=== PATIENT | female | born 1980 | race African-American/Black ===

== ENCOUNTER 2021-12-06 04:56 | Day surgery (SDC) | payer OTHER ==
[2021-12-03 10:01] VITALS: BMI 30.5
[2021-12-06] MEDS ORDERED: GABAPENTIN 300 MG CAPSULE ONE (06:50)
[2021-12-06] MEDS ORDERED: PHENAZOPYRIDINE HCL 100 MG TABLET (FP) ONE (06:51)
[2021-12-06] MEDS ORDERED: ceFAZolin SODIUM 1 GM VIAL ONE ×2 (06:51→18:13)
[2021-12-06] MEDS ORDERED: ACETAMINOPHEN INJECTION 100 ML IVPB ONE (06:51)
[2021-12-06] MEDS ORDERED: BUPIVACAINE LIPOSOME/PF (EXPAREL) 266 MG/20 ML VIAL ONE (07:04)
[2021-12-06] MEDS ORDERED: BUPIVACAINE HCL/PF 0.25% (2.5MG/ML) 10 ML VIAL ONE (07:04)
[2021-12-06] MEDS ORDERED: PROPOFOL 20 ML ONE ×4 (07:08→07:09)
[2021-12-06] MEDS ORDERED: MIDAZOLAM HCL 2 MG/2 ML SINGLE DOSE VIAL ONE ×3 (07:09)
[2021-12-06] MEDS ORDERED: ROCURONIUM BROMIDE 50 MG/5 ML SYRINGE ONE ×2 (07:10→08:23)
[2021-12-06] MEDS ORDERED: GABAPENTIN 300 MG CAPSULE PO ONE (07:30)
[2021-12-06] MEDS ORDERED: TRANEXAMIC ACID 1000 MG/10 ML VIAL IVPUSH ONE (07:30)
[2021-12-06] MEDS ORDERED: PHENAZOPYRIDINE HCL 100 MG TABLET (FP) PO ONE (07:30)
[2021-12-06] MEDS ORDERED: CEFAZOLIN 2 GM in DEXTROSE 5%-WATER - 100 ML IVPB ONE (07:30)
[2021-12-06] MEDS ORDERED: ACETAMINOPHEN 1000 MG/100 ML BAG IVPB ONE (07:30)
[2021-12-06] MEDS ORDERED: ceFAZolin SODIUM 1 GM VIAL IVPB ONE (08:20)
[2021-12-06] MEDS ORDERED: DEXAMETHASONE SOD PHOSPHATE 4 MG/1 ML VIAL ONE (08:23)
[2021-12-06] MEDS ORDERED: HYDROmorphone HCl 2 MG/ML VIAL ONE (08:36)
[2021-12-06] MEDS ORDERED: NEOSTIGMINE METHYLSULFATE 0.5 MG/ML - 10 ML MDV ONE (09:09)
[2021-12-06] MEDS ORDERED: NALOXONE HCL 0.4 MG/ML VIAL ONE (10:15)
[2021-12-06] MEDS ORDERED: ONDANSETRON 4 MG/2 ML VIAL IVPUSH PRN ×2 (10:24→10:33)
[2021-12-06] MEDS ORDERED: SIMETHICONE 80 MG TAB.CHEW (FP) PO PRN (10:24)
[2021-12-06] MEDS ORDERED: ACETAMINOPHEN 325 MG TABLET (FP) PO PRN (10:24)
[2021-12-06] MEDS ORDERED: BISACODYL 5 MG TABLET.DR (FP) PO PRN (10:24)
[2021-12-06] MEDS ORDERED: IBUPROFEN 800 MG/8 ML IJ IVPB PRN (10:24)
[2021-12-06] MEDS ORDERED: oxyCODONE HCL 5 MG TABLET PO PRN ×2 (10:24)
[2021-12-06] MEDS ORDERED: DOCUSATE SODIUM 100 MG CAPSULE (FP) PO PRN (10:24)
[2021-12-06] MEDS: LACTATED RINGERS SOLUTION 1,000 ML IV SCH (10:30)
[2021-12-06] MEDS ORDERED: FENTANYL CITRATE/PF 50 MCG/ML VIAL ONE (10:46)
[2021-12-06] MEDS: ACETAMINOPHEN 1000 MG/100 ML BAG IVPB SCH ×3 (10:50→23:14)
[2021-12-06] MEDS ORDERED: CEFAZOLIN 1 GM in DEXTROSE 5%-WATER 100 ML IVPB SCH (18:00)
[2021-12-06 18:10] LABS: HEMATOCRIT 29.7 % (32.4-45.2); HEMOGLOBIN 8.9 GM/dL (10.7-15.3); MCHC 30.1 g/dl (32.0-36.0); MEAN CELL VOLUME 66.1 fl (80-96); MEAN PLT VOLUME 7.7 fl (7.5-11.1); PLATELET COUNT 406 10^3/uL (134-434); RDW 19.2 % (11.6-15.6); WHITE BLOOD COUNT 12.7 K/mm3 (4.0-10.0)
[2021-12-06] MEDS: KETOROLAC TROMETHAMINE 30 MG/1 ML VIAL IVPUSH SCH ×2 (18:12→23:46)
[2021-12-06] MEDS ORDERED: DEXTROSE 5%-WATER - 50 ML IVPB ONE (18:13)
[2021-12-06 18:34] LABS: CALCIUM 8.9 mg/dL (8.5-10.1)
[2021-12-06] MEDS: CEFAZOLIN 1 GM in DEXTROSE 5%-WATER - 50 ML IVPB SCH (18:36)
[2021-12-06 18:38] LABS: CREATININE 0.6 mg/dL (0.55-1.3)
[2021-12-06 18:59] LABS: MCH 19.9 pg (25.7-33.7)
[2021-12-06 21:41] LABS: ANISOCYTOSIS 1+; MACROCYTOSIS 0; OVALOCYTE 1+
[2021-12-06] MEDS: oxyCODONE HCL 10 MG SUSTAINED ACTING TABLET PO SCH (22:17)
[2021-12-07] MEDS ORDERED: DEXTROSE 5%-WATER - 50 ML IVPB ONE ×2 (01:39→09:25)
[2021-12-07] MEDS ORDERED: ceFAZolin SODIUM 1 GM VIAL ONE ×2 (01:39→09:25)
[2021-12-07] MEDS: CEFAZOLIN 1 GM in DEXTROSE 5%-WATER - 50 ML IVPB SCH ×2 (02:17→09:32)
[2021-12-07] MEDS: ACETAMINOPHEN 1000 MG/100 ML BAG IVPB SCH (04:26)
[2021-12-07] MEDS: LACTATED RINGERS SOLUTION 1,000 ML IV SCH (04:27)
[2021-12-07 08:06] LABS: HEMATOCRIT 27.4 % (32.4-45.2); HEMOGLOBIN 8.3 GM/dL (10.7-15.3); MCH 20.2 pg (25.7-33.7); MCHC 30.2 g/dl (32.0-36.0); MEAN CELL VOLUME 66.8 fl (80-96); MEAN PLT VOLUME 8.2 fl (7.5-11.1); PLATELET COUNT 376 10^3/uL (134-434); RDW 19.2 % (11.6-15.6); WHITE BLOOD COUNT 11.5 K/mm3 (4.0-10.0)
[2021-12-07 08:24] LABS: CALCIUM 8.2 mg/dL (8.5-10.1)
[2021-12-07 08:25] LABS: BLOOD UREA NITROGEN 9.5 mg/dL (7-18)
[2021-12-07 08:28] LABS: CREATININE 0.7 mg/dL (0.55-1.3)
[2021-12-07] MEDS: oxyCODONE HCL 10 MG SUSTAINED ACTING TABLET PO SCH (09:32)
[2021-12-07] MEDS ORDERED: ENOXAPARIN NA (PORCINE) 40 MG/0.4 ML DISP.SYRIN SQ SCH (10:00)
[2021-12-07 11:47] VITALS: BP 132/86; PULSE 73; TEMP 98.1
== END 2021-12-07 12:15 | disposition home or self-care (01) ==
LOC: JASUSAT 04:56 → JASU-SURG 04:56 → J3W 13:00 → JASUSAT 12-07 12:15
PROVIDERS: ATTEND Obstetrics & Gynecology
PROC: 0UT7FZZ Resection of Bilateral Fallopian Tubes, Via Natural or Artificial Opening With Percutaneous Endoscopic Assistance (ICD-10-PCS; 2021-12-06)
PROC: 8E0W4CZ Robotic Assisted Procedure of Trunk Region, Percutaneous Endoscopic Approach (ICD-10-PCS; 2021-12-06)
PROC: 0UB04ZZ Excision of Right Ovary, Percutaneous Endoscopic Approach (ICD-10-PCS; principal; 2021-12-06 07:30)
PROC: 0UT9FZZ Resection of Uterus, Via Natural or Artificial Opening With Percutaneous Endoscopic Assistance (ICD-10-PCS; 2021-12-06 07:30)
DX: D25.1 Intramural leiomyoma of uterus (principal); N83.201 Unspecified ovarian cyst, right side; N94.89 Other specified conditions associated with female genital organs and menstrual cycle
CPT/HCPCS: 58552; 58662; S2900; 36415; 80048; 81025; 84703; 85027; 86850; 86900; 86901; 88302-TC; 88305-TC; 88307-TC; 94010; 94760